=== PATIENT | female | born 1940 | race Hispanic/Latino ===

== ENCOUNTER → 2021-10-16 | Day surgery (SDC) | payer MEDICARE ==
[~2021-10-16] MED LIST: LIDOCAINE HCL 2% LOCAL INJ 5 ML SDV VIAL INJ ONE; ONDANSETRON HCL INJ 2MG/ML 2ML 2 MG/ML VIAL ONE; OR PHACO EYE KIT ONE; PENTOXIFYLLINE400 MG PO; POVIDONE IODINE 0.05% 0.05 % ML PO ONE; PREOP PHACO EYE KIT ONE; PROPOFOL IV EMULSION 10 MG/ML 20 ML VIAL ONE; SEVOFLURANE INHAL SOLN 250 ML PEN BTL ONE; Z.0.LEVOTHYROXINE75 PO; Z.0.LOVASTATIN20 MG PO; Z.0.OSCAL D500 MG; Z.0.VITAMIN D3 1,01 PO
[2021-10-16 13:35] VITALS: BP 137/57
== END | disposition home or self-care (01) ==
LOC: OR 10:52
PROVIDERS: ATTEND Ophthalmology
DX: H25.12 Age-related nuclear cataract, left eye (principal); E03.9 Hypothyroidism, unspecified; I69.851 Hemiplegia and hemiparesis following other cerebrovascular disease affecting right dominant side; G30.9 Alzheimer's disease, unspecified; F02.80 Dementia in other diseases classified elsewhere, unspecified severity, without behavioral disturbance, psychotic disturbance, mood disturbance, and anxiety; Z01.812 Encounter for preprocedural laboratory examination; Z20.822 Contact with and (suspected) exposure to COVID-19; Z79.899 Other long term (current) drug therapy
CPT/HCPCS: 66982; J2001; J2405; J2704; U0002; V2632

== ENCOUNTER → 2021-10-30 | Day surgery (SDC) | payer MEDICARE ==
[~2021-10-30] MED LIST changes: +CHONDR SU A NA/HYALUR SOD 1 EACH KIT IO ONE; -ONDANSETRON HCL INJ 2MG/ML 2ML 2 MG/ML VIAL ONE; -SEVOFLURANE INHAL SOLN 250 ML PEN BTL ONE
[2021-10-30 15:25] VITALS: BP 127/67
== END | disposition home or self-care (01) ==
LOC: OR 11:56
PROVIDERS: ATTEND Ophthalmology
DX: H25.11 Age-related nuclear cataract, right eye (principal); E03.9 Hypothyroidism, unspecified; G30.9 Alzheimer's disease, unspecified; F02.80 Dementia in other diseases classified elsewhere, unspecified severity, without behavioral disturbance, psychotic disturbance, mood disturbance, and anxiety; Z01.812 Encounter for preprocedural laboratory examination; Z20.822 Contact with and (suspected) exposure to COVID-19; Z79.899 Other long term (current) drug therapy; Z86.73 Personal history of transient ischemic attack (TIA), and cerebral infarction without residual deficits
CPT/HCPCS: 66984; J2001; J2704; U0002; V2632